=== PATIENT | female | born 1975 | race African-American/Black ===

== ENCOUNTER 2018-11-02 10:30 | Outpatient (CLI) | payer MEDICAID ==
--- NOTE | 2018-11-03 08:57 | Mammography Report ---
Reason: SCREENING MAMMO Procedure Date: 11/02/2018 Accession Number: [id number] / [id number] Procedure: MGN - Screening Mammo Dig Bilat CPT Code: FULL RESULT: EXAM: Screening Mammo Dig Bilat DATE: 11/02/2018 11:24 AM CLINICAL HISTORY: Screening encounter. No known risk factors. TECHNIQUE: Bilateral CC, laterally exaggerated CC, MLO views were obtained. COMPARISON: Baseline mammogram. FINDINGS: The breasts demonstrate heterogeneously dense fibroglandular parenchyma bilaterally. No suspicious masses, clustered microcalcifications, or regions of architectural distortion are identified. IMPRESSION: Benign findings RECOMMENDATION: Routine annual screening unless otherwise clinically indicated. BIRADS CATEGORY 2: Benign findings STANDARD QUALIFYING STATEMENTS: 1. This examination was reviewed with the aid of Computer-Aided Detection (CAD). 2. A negative or benign imaging report should not preclude biopsy if clinically suspicious findings are present. 3. Dense breasts may obscure an underlying neoplasm. 4. This examination was reviewed without the aid of 3D breast imaging (tomosynthesis).
== END 2018-11-02 10:31 | disposition home or self-care (01) ==
LOC: DI.N 10:30
PROVIDERS: ATTEND Nurse Practitioner
DX: Z12.31 Encounter for screening mammogram for malignant neoplasm of breast (principal)
CPT/HCPCS: 77067

== ENCOUNTER 2018-12-21 11:02 | Emergency (ER) | payer MEDICAID ==
--- NOTE | 2018-12-21 12:45 | ED Physician Documentation ---
PD HPI SKIN - Stated complaint Stated Complaint: BUMPS UNDER ARM PIT - Chief complaint Chief Complaint: Wound - History obtained from History obtained from: Patient - History of Present Illness Timing - onset: How many weeks ago (2-3) Timing - duration: Weeks (2-3) Location: LUE (axilla) Quality / character: Painful, Swelling, Draining (minimal, until this morning when one of them popped open and drained more. 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 Bactrim with improvement of lesions but then back again and in new spot. Had needle aspiration of one of them last week and that one improved but others arose.) Review of Systems Constitutional: denies: Fever, Chills, Myalgias Skin: reports: Lesions Neurologic: denies: Focal weakness, Numbness PD PAST MEDICAL HISTORY - Past Medical History Cardiovascular: None Respiratory: None Neuro: None Endocrine/Autoimmune: None - Present Medications Home Medications: Ambulatory Orders Medication Instructions Recorded Confirmed Chlorhexidine Gluconate [Hibiclens] 15 ml TP DAILY #236 ml 12/21/18 Doxycycline Hyclate 100 mg PO BID #20 capsule 12/21/18 Hydrochlorothiazide 12.5 mg PO DAILY 12/21/18 12/21/18 Hydrocodone/Acetaminophen [[place] 1 each PO Q6H PRN #15 tablet 12/21/18 5-325 Tablet] Mupirocin 1 applic TP TID #15 g 12/21/18 Naproxen 375 mg PO BID #20 tablet 12/21/18 - Allergies Allergies/Adverse Reactions: Allergies Allergy/AdvReac Type Severity Reaction Status Date / Time No Known Drug Allergies Allergy Verified 12/21/18 11:22 PD ED PE NORMAL - Vitals Vital signs reviewed: Yes - General General: Alert and oriented X 3, Well developed/nourished, Other (very uncomfortable with palpation of armpit area.) - Neck Neck: Supple, no meningeal sign, No adenopathy - Cardiac Cardiac: RRR, No murmur - Respiratory Respiratory: Clear bilaterally - Derm Derm: Normal color, Warm and dry, Other (left axialla with several very tender small firm areas with minimal drainage c/w small abscesses. Not feeling deep induration nor large fluctuance. ) Results - Vitals Vitals: Oxygen O2 Source Room air PD MEDICAL DECISION MAKING - ED course Complexity details: considered differential (Multiple small abscesses in the left armpit. None of them feel large enough for I&D. There is some spontaneous drainage from a couple of them.), d/w patient Departure - Departure Disposition: 01 Home, Self Care Clinical Impression: Axillary abscess Condition: Stable Record reviewed to determine appropriate education?: Yes Instructions: ED Staph Infec Abx Tx Only Follow-Up: Mikki Shay DNP [Primary Care Provider] - Prescriptions: Chlorhexidine Gluconate [Hibiclens] 15 ml TP DAILY #236 ml Doxycycline Hyclate 100 mg PO BID #20 capsule Hydrocodone/Acetaminophen [D [place] 5-325 Tablet] 1 each PO Q6H PRN #15 tablet PRN Reason: Pain Mupirocin 1 applic TP TID #15 g Naproxen 375 mg PO BID #20 tablet Comments: Cleanse the armpits area with regular soap and water and also the chlorhexidine antiseptic mix with water like a body soap (and use the antiseptic whole body as a shower wash too) once or twice daily. Apply mupirocin topical antibiotic to the area. Doxycycline oral antibiotic twice daily for 7-10 days until this is fully resolved. Use naproxen twice daily for inflammation and pain and add Tylenol or hydrocodone short-term if needed for pain. I would expect improvement over the next several days. The topical treatment with the antibiotic and then the whole body cleansing with the antiseptic is to try to reduce the germs on the surface of the do not find another spot. Discharge Date/Time: 12/21/18 13:11
[2018-12-21] MEDS ORDERED: DOXYCYCLINE 100 MG TABLET PO STA (12:48)
[2018-12-21] MEDS ORDERED: MUPIROCIN 2% OINT 1 GM TOP STA (12:48)
[2018-12-21] MEDS ORDERED: HYDROcod/ACETAM 5/325 MG TABLET PO STA (12:48)
[2018-12-21] MEDS ORDERED: IBUPROFEN 600 MG TABLET PO STA (12:48)
[2018-12-21 13:12] VITALS: BP 145/77
== END 2018-12-21 13:11 | disposition home or self-care (01) ==
LOC: ED 11:02
DX: L02.412 Cutaneous abscess of left axilla (principal)
CPT/HCPCS: 99283; A9270

== ENCOUNTER 2019-02-19 08:00 | Outpatient (CLI) | payer MEDICAID | END 2019-02-19 23:59 | disposition home or self-care (01) | LOC: LAB.R 08:00 | PROVIDERS: ATTEND Nurse Practitioner | DX: L02.412 Cutaneous abscess of left axilla (principal); L72.3 Sebaceous cyst | CPT/HCPCS: 87070; 87077; 87181; 87205 ==

== ENCOUNTER 2019-07-19 09:25 | Emergency (ER) | payer MEDICAID ==
[2019-07-19] MEDS ORDERED: DEXAMETHASONE 10 MG/ML VIAL PO STA (10:13)
[2019-07-19] MEDS ORDERED: CHERRY SYRUP 10 ML UDC PO ONE (10:13)
[2019-07-19] MEDS ORDERED: KETOROLAC 60 MG/2 ML VIAL IM STA (10:13)
--- NOTE | 2019-07-19 10:16 | ED Physician Documentation ---
PD HPI LOWER EXT INJURY - Stated complaint Stated Complaint: R LEG PAIN - Chief complaint Chief Complaint: Ext Problem - History obtained from History obtained from: Patient - History of Present Illness PD HPI LOW EXT INJURY LOCATION: Right, Knee Type of injury: Blunt / blow Where injury occurred: Work Timing - onset: How many weeks ago (2) Timing - duration: Weeks (2) Timing - details: Abrupt onset, Still present Improved by: Rest, Immobilization Worsened by: Moving, Palpating Associated symptoms: Swelling Contributing factors: No: Anticoagulated Similar symptoms before: Diagnosis (bone fragment in soft tissues.) Recently seen: Not recently seen - Additional information Additional information: 43-year-old female has had a bone fragment in the soft tissues on her right knee for years periodically will have a flare of pain associated with this with a bit of swelling. She is started a new job and she banged her knee hard against a bed frame and since that time is had swelling and pain. She is having enough pain that she is having trouble sleeping. She is been taking some ibuprofen [id number] and she is been continuing to go to work. She has recently started this job and she does not want to stop working. Review of Systems Constitutional: denies: Fever Nose: denies: Congestion Respiratory: denies: Cough GI: denies: Vomiting PD PAST MEDICAL HISTORY - Past Medical History Cardiovascular: None Respiratory: None Neuro: None Endocrine/Autoimmune: None - Past Surgical History Past Surgical History: No - Present Medications Home Medications: Ambulatory Orders Medication Instructions Recorded Confirmed Chlorhexidine Gluconate [Hibiclens] 15 ml TP DAILY #236 ml 12/21/18 Doxycycline Hyclate 100 mg PO BID #20 capsule 12/21/18 Hydrochlorothiazide 12.5 mg PO DAILY 12/21/18 12/21/18 Hydrocodone/Acetaminophen [[place] 1 each PO Q6H PRN #15 tablet 12/21/18 5-325 Tablet] Mupirocin 1 applic TP TID #15 g 12/21/18 Naproxen 375 mg PO BID #20 tablet 12/21/18 traMADol [Ultram] 50 - 100 mg PO Q6H PRN #20 tablet 07/19/19 - Allergies Allergies/Adverse Reactions: Allergies Allergy/AdvReac Type Severity Reaction Status Date / Time No Known Drug Allergies Allergy Verified 07/19/19 09:36 - Social History Does the pt smoke?: No Smoking Status: Never smoker Does the pt drink ETOH?: No Does the pt have substance abuse?: No - Immunizations Immunizations are current?: Yes - POLST Patient has POLST: No PD ED PE NORMAL - Vitals Vital signs reviewed: Yes (hypertensive) - General General: Alert and oriented X 3, No acute distress, Well developed/nourished - HEENT HEENT: Atraumatic, PERRL, EOMI - Respiratory Respiratory: No respiratory distress - Derm Derm: Normal color, Warm and dry, No rash - Extremities Extremities: No deformity, Other (There is a swelling to the lateral aspect of the right knee that starts at joint line and runs inferiorly about 4cm. The area is not fluctuant or red. It is swollen and tender. Movement of the knee joint through a ROM does increase the patients discomfort. Distal n/v is intact. 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 Well- corticated ossification adjacent to the lateral femoral condyle related to old trauma or accessory ossicle seen.), EMP read indepedently, See rad report PD MEDICAL DECISION MAKING - ED course Complexity details: reviewed results, re-evaluated patient, considered differential, d/w patient ED course: 43-year-old female with a existing bone fragment in the soft tissues of the right knee has hit the area she has swelling associated with this without fluctuance and without erythema and she appears to be quite a bit of discomfort related to this. She is administered dexamethasone 10 mg orally is given Toradol 60 mg IM and will place her on some tramadol for assistance with her pain control and refer her to orthopedics. Departure - Departure Disposition: 01 Home, Self Care Clinical Impression: Contusion of right knee Qualifiers: Encounter type: initial encounter Qualified Code(s): S80.01XA - Contusion of right knee, initial encounter Condition: Stable Instructions: ED Contusion Lower Ext Follow-Up: Mikki Shay DNP [Primary Care Provider] - [facility] [Provider Group] Prescriptions: traMADol [Ultram] 50 - 100 mg PO Q6H PRN #20 tablet PRN Reason: Pain
--- NOTE | 2019-07-19 10:24 | XRAY Report ---
Reason: possible floating bone Procedure Date: 07/19/2019 Accession Number: [id number] / [id number] Procedure: XR - Knee 4 View RT CPT Code: FULL RESULT: EXAM: RIGHT KNEE RADIOGRAPHY EXAM DATE: 07/19/2019 10:01 AM. CLINICAL HISTORY: Right knee pain. COMPARISON: None. TECHNIQUE: 4 views. FINDINGS: Bones: No acute fracture or bone lesion. Well corticated calcification is seen adjacent to the lateral femoral condyle related to old trauma or accessory ossicle. Joints: Normal. No effusion. No subluxations. Soft Tissues: Normal. No soft tissue swelling. IMPRESSION: No acute findings. Well-corticated ossification adjacent to the lateral femoral condyle related to old trauma or accessory ossicle seen. [facility]
[2019-07-19 11:14] VITALS: BP 131/86
== END 2019-07-19 11:14 | disposition home or self-care (01) ==
LOC: ED 09:25
DX: S80.01XA Contusion of right knee, initial encounter (principal); W22.03XA Walked into furniture, initial encounter; Y99.0 Civilian activity done for income or pay
CPT/HCPCS: 73564; 96372; 99283; 99284; A9270

== ENCOUNTER 2019-11-17 12:31 | Outpatient (CLI) | payer MEDICAID ==
[2019-11-17 18:22] LABS: BASOPHILS % (AUTO) 0.3 %; HGB - HEMOGLOBIN 12.1 g/dL (12.0-16.0); LYMPHOCYTES # (AUTO) 1.1 10^3/uL (1.5-3.5); LYMPHOCYTES % (AUTO) 31.7 %; MEAN CORPUSCULAR HGB CONC 34.9 g/dL (32.0-36.0); MEAN CORPUSCULAR VOLUME 86.1 fL (81.0-99.0); MEAN PLATELET VOLUME 10.5 fL (7.9-10.8); MONOCYTES # (AUTO) 0.3 10^3/uL (0.0-1.0); MONOCYTES % (AUTO) 9.4 %; NEUTROPHILS # (AUTO) 1.9 10^3/uL (1.5-6.6); NEUTROPHILS % (AUTO) 58.3 %; PLT - PLATELET COUNT 200 10^3/uL (130-450); RED BLOOD COUNT 4.03 10^6/uL (4.20-5.40); WHITE BLOOD COUNT 3.3 x10^3/uL (4.8-10.8)
[2019-11-17 18:55] LABS: ALBUMIN 4.1 g/dL (3.2-5.5); ALBUMIN/GLOBULIN RATIO 1.1 (1.0-2.2); BILIRUBIN,TOTAL 0.7 mg/dL (0.2-1.0); CREATININE 0.7 mg/dL (0.4-1.0); TOTAL PROTEIN 7.7 g/dL (6.7-8.2)
== END 2019-11-17 23:59 | disposition home or self-care (01) ==
LOC: LAB.N 12:31
PROVIDERS: ATTEND Physician Assistant Medical
DX: I10 Essential (primary) hypertension (principal)
CPT/HCPCS: 36415; 80053; 85025

== ENCOUNTER 2020-03-07 09:06 | Outpatient (CLI) | payer MEDICAID ==
[2020-03-08 11:24] LABS: HIV AG/AB 4TH GEN NON-REACTIVE (NON-REACTIVE)
[2020-03-08 15:16] LABS: HEPATITIS C ANTIBODY NON-REACTIVE (NON-REACTIVE)
== END 2020-03-07 23:59 | disposition home or self-care (01) ==
LOC: LAB.WCP 09:06
PROVIDERS: ATTEND Family Medicine
DX: Z11.3 Encounter for screening for infections with a predominantly sexual mode of transmission (principal)
CPT/HCPCS: 36415; 81599; 86592; 86803; 87389

== ENCOUNTER 2021-09-05 08:00 | Outpatient (CLI) | payer MEDICAID ==
[2021-09-05 11:49] LABS: BASOPHILS % (AUTO) 0.6 %; EOSINOPHILS # (AUTO) 0.2 10^3/uL (0.0-0.7); EOSINOPHILS % (AUTO) 3.8 %; HCT - HEMATOCRIT 34.9 % (37.0-47.0); HGB - HEMOGLOBIN 11.9 g/dL (12.0-16.0); LYMPHOCYTES # (AUTO) 1.1 10^3/uL (1.5-3.5); LYMPHOCYTES % (AUTO) 23.9 %; MEAN CORPUSCULAR HEMOGLOBIN 30.4 pg (27.0-31.0); MEAN CORPUSCULAR HGB CONC 34.1 g/dL (32.0-36.0); MEAN CORPUSCULAR VOLUME 89.3 fL (81.0-99.0); MEAN PLATELET VOLUME 9.4 fL (7.9-10.8); MONOCYTES # (AUTO) 0.5 10^3/uL (0.0-1.0); MONOCYTES % (AUTO) 11.2 %; NEUTROPHILS # (AUTO) 2.8 10^3/uL (1.5-6.6); NEUTROPHILS % (AUTO) 60.3 %; PLT - PLATELET COUNT 245 10^3/uL (130-450); RED BLOOD COUNT 3.91 10^6/uL (4.20-5.40); RED CELL DISTRIBUTION WIDTH 12.8 % (12.0-15.0); WHITE BLOOD COUNT 4.7 x10^3/uL (4.8-10.8)
[2021-09-05 12:12] LABS: ALBUMIN 4.3 g/dL (3.2-5.5); ALBUMIN/GLOBULIN RATIO 1.5 (1.0-2.2); BILIRUBIN,TOTAL 0.6 mg/dL (0.2-1.0); CALCIUM 9.2 mg/dL (8.5-10.3); CREATININE 0.7 mg/dL (0.4-1.0); POTASSIUM 4.3 mmol/L (3.5-5.0); TOTAL PROTEIN 7.2 g/dL (6.7-8.2)
== END 2021-09-05 23:59 | disposition home or self-care (01) ==
LOC: LAB.WCP 08:00
PROVIDERS: ATTEND Family Medicine
DX: R10.13 Epigastric pain (principal)
CPT/HCPCS: 36415; 80053; 85025

== ENCOUNTER 2021-10-22 08:00 | Outpatient (CLI) | payer MEDICAID ==
[2021-10-22 12:43] LABS: BASOPHILS % (AUTO) 0.7 %; EOSINOPHILS # (AUTO) 0.2 10^3/uL (0.0-0.7); EOSINOPHILS % (AUTO) 3.6 %; HCT - HEMATOCRIT 35.3 % (37.0-47.0); HGB - HEMOGLOBIN 12.3 g/dL (12.0-16.0); LYMPHOCYTES # (AUTO) 1.2 10^3/uL (1.5-3.5); LYMPHOCYTES % (AUTO) 26.6 %; MEAN CORPUSCULAR HEMOGLOBIN 30.5 pg (27.0-31.0); MEAN CORPUSCULAR HGB CONC 34.8 g/dL (32.0-36.0); MEAN CORPUSCULAR VOLUME 87.6 fL (81.0-99.0); MEAN PLATELET VOLUME 9.4 fL (7.9-10.8); MONOCYTES # (AUTO) 0.4 10^3/uL (0.0-1.0); MONOCYTES % (AUTO) 9.3 %; NEUTROPHILS # (AUTO) 2.6 10^3/uL (1.5-6.6); NEUTROPHILS % (AUTO) 59.6 %; PLT - PLATELET COUNT 256 10^3/uL (130-450); RED BLOOD COUNT 4.03 10^6/uL (4.20-5.40); RED CELL DISTRIBUTION WIDTH 12.6 % (12.0-15.0); WHITE BLOOD COUNT 4.4 x10^3/uL (4.8-10.8)
[2021-10-22 13:35] LABS: ALBUMIN 4.4 g/dL (3.2-5.5); ALBUMIN/GLOBULIN RATIO 1.5 (1.0-2.2); ALKALINE PHOSPHATASE 41 IU/L (42-121); ALT ALANINE AMINOTRANSFERASE 15 IU/L (10-60); AST ASPARTATE AMINOTRANSFERASE 17 IU/L (10-42); BILIRUBIN,TOTAL 1.2 mg/dL (0.2-1.0); BUN - BLOOD UREA NITROGEN 15 mg/dL (6-20); CALCIUM 9.2 mg/dL (8.5-10.3); CARBON DIOXIDE - CO2 27 mmol/L (21-32); CHLORIDE 102 mmol/L (101-111); CHOL/HDL RATIO 3.8 (<4.4); CHOLESTEROL 189 mg/dL; CREATININE 0.7 mg/dL (0.4-1.0); GFR - MDRD 110 (>89); GLUCOSE 91 mg/dL (70-100); HDL CHOLESTEROL 50 mg/dL; LDL CHOLESTEROL,CALCULATED 127 mg/dL; LDL/HDL RATIO 2.5 (<4.4); POTASSIUM 4.3 mmol/L (3.5-5.0); SODIUM 136 mmol/L (135-145); TOTAL PROTEIN 7.4 g/dL (6.7-8.2); TRIGLYCERIDES 59 mg/dL; VLDL CHOLESTEROL 12 mg/dL
== END 2021-10-22 23:59 | disposition home or self-care (01) ==
LOC: LAB.WCP 08:00
PROVIDERS: ATTEND Family Medicine
DX: I10 Essential (primary) hypertension (principal)
CPT/HCPCS: 36415; 80053; 80061; 83721; 85025

== ENCOUNTER 2022-12-06 14:50 | Outpatient (CLI) | payer MEDICAID ==
[2022-12-06 18:03] LABS: ABSOLUTE RETICS # AUTO 0.081 10^6/uL (0.020-0.110); RED BLOOD COUNT 4.19 10^6/uL (4.20-5.40); RETICULOCYTE COUNT % (AUTO) 1.93 % (0.5-2.3)
[2022-12-06 18:04] LABS: BASOPHILS % (AUTO) 0.6 %; EOSINOPHILS # (AUTO) 0.4 10^3/uL (0.0-0.7); EOSINOPHILS % (AUTO) 5.5 %; HCT - HEMATOCRIT 36.2 % (37.0-47.0); HGB - HEMOGLOBIN 12.1 g/dL (12.0-16.0); LYMPHOCYTES # (AUTO) 1.8 10^3/uL (1.5-3.5); LYMPHOCYTES % (AUTO) 27.5 %; MEAN CORPUSCULAR HEMOGLOBIN 28.6 pg (27.0-31.0); MEAN CORPUSCULAR HGB CONC 33.4 g/dL (32.0-36.0); MEAN CORPUSCULAR VOLUME 85.6 fL (81.0-99.0); MEAN PLATELET VOLUME 9.9 fL (7.9-10.8); MONOCYTES # (AUTO) 0.8 10^3/uL (0.0-1.0); MONOCYTES % (AUTO) 12.2 %; NEUTROPHILS # (AUTO) 3.5 10^3/uL (1.5-6.6); NEUTROPHILS % (AUTO) 53.3 %; PLT - PLATELET COUNT 371 10^3/uL (130-450); RED BLOOD COUNT 4.23 10^6/uL (4.20-5.40); RED CELL DISTRIBUTION WIDTH 13.2 % (12.0-15.0); WHITE BLOOD COUNT 6.6 x10^3/uL (4.8-10.8)
[2022-12-06 18:06] LABS: ALBUMIN 4.1 g/dL (3.2-5.5); ALKALINE PHOSPHATASE 71 IU/L (42-121); ALT ALANINE AMINOTRANSFERASE 17 IU/L (10-60); AST ASPARTATE AMINOTRANSFERASE 21 IU/L (10-42); BILIRUBIN,TOTAL 0.6 mg/dL (0.2-1.0); BUN - BLOOD UREA NITROGEN 8 mg/dL (6-20); CARBON DIOXIDE - CO2 26 mmol/L (21-32); CHLORIDE 100 mmol/L (101-111); CHOL/HDL RATIO 5.2 (<4.4); CHOLESTEROL 150 mg/dL; CREATININE 0.8 mg/dL (0.4-1.0); GFR - MDRD 94 (>89); GLUCOSE 90 mg/dL (70-100); HDL CHOLESTEROL 29 mg/dL; LDL CHOLESTEROL,CALCULATED 91 mg/dL; LDL/HDL RATIO 3.1 (<4.4); POTASSIUM 3.9 mmol/L (3.5-5.0); SODIUM 132 mmol/L (135-145); TOTAL PROTEIN 8.4 g/dL (6.7-8.2); TRIGLYCERIDES 152 mg/dL; URIC ACID 5.2 mg/dL (2.6-7.2); VLDL CHOLESTEROL 30 mg/dL
[2022-12-06 18:22] LABS: CRP - C-REACTIVE PROTEIN < 1.0 mg/dL (0-1.0)
[2022-12-06 18:40] LABS: RHEUMATOID FACTOR NEGATIVE (Negative)
[2022-12-07 17:08] LABS: ANTI-DNA (DS) AB QN 1 IU/mL (0-9)
[2022-12-09 18:08] LABS: CYCLIC CITRULLINATED PEP IGG/A 5 units (0-19)
== END 2022-12-06 14:51 | disposition home or self-care (01) ==
LOC: LAB.N 14:50
PROVIDERS: ATTEND Pediatrics
DX: I10 Essential (primary) hypertension (principal); L73.2 Hidradenitis suppurativa; Z13.220 Encounter for screening for lipoid disorders; M79.673 Pain in unspecified foot; M79.674 Pain in right toe(s); M79.643 Pain in unspecified hand; Z79.899 Other long term (current) drug therapy
CPT/HCPCS: 36415; 80053; 80061; 81599; 83721; 84550; 85025; 85045; 85651; 86038; 86140; 86200; 86225; 86235; 86430

== ENCOUNTER 2023-11-03 09:32 | Outpatient (CLI) | payer MEDICAID, OTHER | END 2023-11-03 09:33 | disposition home or self-care (01) | LOC: LAB.N 09:32 | DX: L73.2 Hidradenitis suppurativa (principal) | CPT/HCPCS: 81599; 86480 ==

== ENCOUNTER 2024-06-25 14:31 | Outpatient (CLI) | payer OTHER ==
[2024-06-25 18:21] LABS: BASOPHILS % (AUTO) 0.3 %; EOSINOPHILS # (AUTO) 0.1 10^3/uL (0.0-0.7); EOSINOPHILS % (AUTO) 1.9 %; HGB - HEMOGLOBIN 12.4 g/dL (12.0-16.0); LYMPHOCYTES # (AUTO) 1.9 10^3/uL (1.5-3.5); LYMPHOCYTES % (AUTO) 27.3 %; MEAN CORPUSCULAR HGB CONC 34.4 g/dL (32.0-36.0); MEAN CORPUSCULAR VOLUME 87.2 fL (81.0-99.0); MEAN PLATELET VOLUME 9.8 fL (7.9-10.8); MONOCYTES # (AUTO) 0.6 10^3/uL (0.0-1.0); MONOCYTES % (AUTO) 9.4 %; NEUTROPHILS # (AUTO) 4.1 10^3/uL (1.5-6.6); NEUTROPHILS % (AUTO) 60.8 %; PLT - PLATELET COUNT 293 10^3/uL (130-450); RED BLOOD COUNT 4.13 10^6/uL (4.20-5.40); RED CELL DISTRIBUTION WIDTH 12.6 % (12.0-15.0); WHITE BLOOD COUNT 6.8 x10^3/uL (4.8-10.8)
[2024-06-25 18:28] LABS: ALBUMIN/GLOBULIN RATIO 1.3 (1.0-2.2); ALKALINE PHOSPHATASE 47 IU/L (42-121); ALT ALANINE AMINOTRANSFERASE 11 IU/L (10-60); AST ASPARTATE AMINOTRANSFERASE 13 IU/L (10-42); BILIRUBIN,TOTAL 0.4 mg/dL (0.2-1.0); BUN - BLOOD UREA NITROGEN 12 mg/dL (6-20); CALCIUM 9.5 mg/dL (8.5-10.3); CARBON DIOXIDE - CO2 28 mmol/L (21-32); CHLORIDE 104 mmol/L (101-111); CHOL/HDL RATIO 4.1 (<4.4); CHOLESTEROL 158 mg/dL; CREATININE 0.6 mg/dL (0.6-1.3); GFR - MDRD 130 (>89); GLUCOSE 106 mg/dL (74-104); HDL CHOLESTEROL 39 mg/dL; LDL CHOLESTEROL,CALCULATED 89 mg/dL; LDL/HDL RATIO 2.3 (<4.4); POTASSIUM 3.7 mmol/L (3.5-4.5); SODIUM 136 mmol/L (135-145); TRIGLYCERIDES 151 mg/dL; VLDL CHOLESTEROL 30 mg/dL
== END 2024-06-25 14:32 | disposition home or self-care (01) ==
LOC: LAB.N 14:31
PROVIDERS: ATTEND Nurse Practitioner
DX: I10 Essential (primary) hypertension (principal); Z13.220 Encounter for screening for lipoid disorders
CPT/HCPCS: 36415; 80053; 80061; 83721; 85025